=== PATIENT | male | born 1955 | race Caucasian/White ===

== ENCOUNTER 2018-07-23 10:03 | Emergency (ER) | payer BC ==
[2018-07-23 10:28] LABS: Clarity Clear (Clear); Glucose, Urine (Dipstick) Negative (Negative); Leukocyte Negative (Negative); Nitrite Negative (Negative); Protein, Urine (Dipstick) Negative (Neg-Trace); Urobilinogen 0.2 mg/dL (0.2-1.0); pH, Urine 5.5 (5.0-9.0)
[2018-07-23 10:29] LABS: Bilirubin Negative (Negative); Blood, Urine Negative (Negative)
== END 2018-07-23 10:47 | disposition home or self-care (01) ==
LOC: BURERS 10:03
DX: M54.5 Low back pain (principal); Z79.899 Other long term (current) drug therapy
CPT/HCPCS: 81003; 99283